=== PATIENT | male | born 1995 | race Caucasian/White ===

== ENCOUNTER 2018-01-24 05:01 | Emergency (ER) | payer BC ==
[~2018-01-24] VITALS: Ht 172.7 cm; Wt 105.4 kg
[2018-01-24 05:23] VITALS: BP 148/81
[2018-01-24] MEDS ORDERED: PROAIR HFA8.5 GM INH (05:25)
[2018-01-24] MEDS ORDERED: PROMETHAZINE/C118 ML PO (05:43)
[2018-01-24 05:57] LABS: INFLUENZA A ANTIGEN None Detected (None Detect); INFLUENZA B ANTIGEN None Detected (None Detect)
== END 2018-01-24 05:51 | disposition home or self-care (01) ==
LOC: M.ERS 05:01
PROVIDERS: Emergency Medicine
DX: J06.9 Acute upper respiratory infection, unspecified (principal); Z87.891 Personal history of nicotine dependence